=== PATIENT | male | born 1950 | race Caucasian/White ===

== ENCOUNTER 2022-12-30 14:46 | Observation (INO) ==
--- NOTE | 2022-12-30 15:10 | XRay Report ---
XR chest 1V portable HISTORY: seizure-like activity COMPARISON: Chest 11/26/2022. FINDINGS: No pneumothorax. No pleural effusions. There is a punctate calcified granuloma within the r ight midlung zone. No new focal lung consolidations to suggest a pneumonia. No evidence for pulmonary edema. Mild interstitial thickening which is likely chronic. IMPRESSION: No acute process. ACT 112: Negative or not required by law. Electronically signed by: Tomas Bear M.D. 12/30/2022 3:08 PM
[2022-12-30 15:19] LABS: Basophils # (auto) 0.04 K/uL (0.00-0.20); Basophils % (auto) 0.7 %; Eosinophils # (auto) 0.13 K/uL (0.00-0.50); Eosinophils % (auto) 2.3 %; Hematocrit (blood only) 38.4 % (42.0-52.0); Hemoglobin 13.2 g/dl (14.0-18.0); Immature Granulocytes # (auto) 0.02 K/uL (0.01-0.20); Immature Granulocytes % (auto) 0.4 %; Lymphocytes # (auto) 0.94 K/uL (1.20-3.40); Lymphocytes % (auto) 16.6 %; Mean Corpuscular Hemoglobin 33.2 pg (25.0-34.0); Mean Corpuscular Hgb Conc 34.4 g/dL (32.0-36.0); Mean Corpuscular Volume 96.7 fL (80.0-100.0); Mean Platelet Volume 10.8 fL (9.4-12.4); Monocytes # (auto) 0.58 K/uL (0.11-0.59); Monocytes % (auto) 10.3 %; Neutrophils # (auto) 3.94 K/uL (1.40-6.50); Neutrophils % (auto) 69.7 %; Platelet Count 183 K/uL (130-400); RDW Coefficient of Variation 12.7 % (11.5-14.5); RDW Standard Deviation 45.4 fL (36.4-46.3); Red Blood Count 3.97 M/uL (4.70-6.10); White Blood Count 5.65 K/ul (4.8-10.8)
--- NOTE | 2022-12-30 15:28 | Emergency Department Note ---
Impression & Plan Seizure-like activity, Acute confusion, Multiple abrasions ED Provider Note HISTORY OF PRESENT ILLNESS: Patient is a 72-year-old male presenting after a seizure. History is obtained via EMS, as patient is very confused. Patient reportedly was standing at the nurses station when his eyes rolled back into his head and he fell to the ground and had tonic-clonic seizure-like activity for 2 to 3 minutes. He reportedly desaturated to 80% on room air at his facility during the seizure episode. He does not have a seizure history. He normally is alert and talkative per facility. Patient is not on any anticoagulation. ROS: as above PHYSICAL EXAM: Constitutional: Patient appears in no acute distress. HENT: Head: Normocephalic. Abrasion with underlying hematoma to the posterior crown of the head. Eyes: EOMI, PERRL Mouth/Throat: Mucous membranes moist. Neck: Trachea midline. Neck supple. Cardiovascular: RRR, No murmurs, rubs or gallops. Intact distal pulses. Pulmonary/Chest: No respiratory distress. Breath sounds clear and equal bilaterally. No wheezes or rales. No chest wall tenderness to palpation. Abdominal: Abdomen soft, no tenderness, rebound or guarding. Musculoskeletal: Patient has a skin tear to the left elbow. Skin: Warm and dry. No rash, erythema, pallor or cyanosis Neurological: Alert but lethargic. CN II-XII grossly intact, moving all extremities spontaneously. MDM: - Vitals signs stable. - History obtained via EMS, given patient's confusion. Patient presents with seizure-like activity. Per reports from the [facility], the patient was standing at the nurses station when his eyes rolled back into his head and he fell off the ground and had seizure-like activity. Seizure lasted 2 to 3 minutes. Reportedly desaturated to 88% on room air at his facility during the episode. He does not have a seizure history. He is not on any anticoagulation. - Chronic conditions affecting care: dementia - Differential diagnoses include, but are not limited to: CVA; intracranial hemorrhage; ACS; pneumothorax; pneumonia; UTI - Order placed for continuous cardiac monitoring. At this time, monitor showed rate of 70 bpm with normal sinus rhythm, per my interpretation. - External medical records reviewed. EMS run sheet reviewed. Patient vitally stable in route. No medications were given prehospital. - EKG reviewed by myself showed normal sinus rhythm. Rate 71 bpm. QTc 395. No acute changes. - Laboratory workup interpreted by myself showed normal WBC; chronic anemia; stable electrolyte; normal glucose; normal magnesium; normal troponin; elevated CK (387) - CT head wo contrast negative for acute intracranial pathology. CT cervical spine wo contrast negative for fracture. - CXR negative for pneumonia, per my interpretation - Patient was reassessed multiple times in the ER and remained lethargic. He would arouse to verbal and physical stimuli, but would not interact or answer questions - UA ordered - Given percent for seizure and continued altered mental status, will admit to the hospital for further work-up. - Discussion was had with socially responsible investment adviser about patient's case and need for admission - Hospitalist consulted for admission - [facility] for further evaluation and management. ASSESSMENT AND PLAN: Diagnosis: Confusion; seizure-like activity; multiple abrasions Plan: Admit Past Med/Surg History Social History Smoking Status: Never smoker Feels Safe at Home: Yes Allergies Allergies Allergy/AdvReac Type Severity Reaction Status Date / Time cephalexin [From Keflex] Allergy Unknown Verified 11/26/22 22:35 Home Meds Home Medications Medication Instructions Recorded Confirmed acetaminophen 325 mg tablet 650 mg PO Q6 PRN Pain 11/26/22 12/30/22 acetaminophen 325 mg tablet 650 mg PO Q6 PRN temp>101 11/26/22 12/30/22 cholecalciferol (vitamin D3) 25 25 mcg PO DAILY 11/26/22 12/30/22 mcg (1,000 unit) tablet (Vitamin D3) divalproex 125 mg capsule,delayed 250 mg PO TID 11/26/22 12/30/22 release sprinkle (Depakote Sprinkles) fluticasone propionate 50 2 spray intranasal DAILY 11/26/22 12/30/22 mcg/actuation nasal spray,suspension lorazepam 0.5 mg tablet 0.25 mg PO QAM 11/26/22 12/30/22 trazodone 50 mg tablet 50 mg PO HS 11/26/22 12/30/22 lorazepam 0.5 mg tablet 0.5 mg PO HS 12/30/22 12/30/22 quetiapine 50 mg tablet 100 mg PO HS 12/30/22 12/30/22 salicylic acid-sulfur 2 %-2 % 1 applic topical .EVERY DAY SHIFT 12/30/22 12/30/22 shampoo Results & Data (ED) Vital Signs Vital Signs - 24 hr 12/30/22 14:49 12/30/22 15:07 12/30/22 15:11 Temperature 36.8 C Temperature Source Oral Pulse Rate 74 72 72 Pulse Rate [Right Finger] Pulse Rhythm Regular Regular Pulse Rhythm [Right Finger] Pulse Strength Normal Pulse Strength [Right Finger] Respiratory Rate 18 18 Respiratory Effort / Characteristics Non-Labored Spontaneous Respiratory Depth Normal Respiratory Pattern Regular Blood Pressure 131/82 Blood Pressure [Right Arm] Blood Pressure Mean 98 Blood Pressure Mean [Right Arm] Blood Pressure Position Lying Pulse Oximetry 97 97 Oxygen Delivery Method Room Air Room Air Sepsis Recent Fever Within 48 Hours No Sepsis New/Unexplained Change in Mental Status No Sepsis Action Taken by Nursing No Action Required 12/30/22 16:32 Temperature Temperature Source Pulse Rate Pulse Rate [Right Finger] 70 Pulse Rhythm Pulse Rhythm [Right Finger] Regular Pulse Strength Pulse Strength [Right Finger] Normal Respiratory Rate 18 Respiratory Effort / Characteristics Non-Labored Spontaneous Respiratory Depth Normal Respiratory Pattern Regular Blood Pressure Blood Pressure [Right Arm] 142/91 H Blood Pressure Mean Blood Pressure Mean [Right Arm] 108 Blood Pressure Position Pulse Oximetry 99 Oxygen Delivery Method Room Air Sepsis Recent Fever Within 48 Hours Sepsis New/Unexplained Change in Mental Status Sepsis Action Taken by Nursing Laboratory Data 12/30/22 14:56 12/30/22 14:56 Lab Results 12/30/22 12/30/22 12/30/22 Range/Units 14:56 14:56 14:56 WBC 5.65 (4.8-10.8) K/ul RBC 3.97 L (4.70-6.10) M/uL Hgb 13.2 L (14.0-18.0) g/dl Hct 38.4 L (42.0-52.0) % MCV 96.7 (80.0-100.0) fL MCH 33.2 (25.0-34.0) pg MCHC 34.4 (32.0-36.0) g/dL RDW Std Deviation 45.4 (36.4-46.3) fL RDW Coeff of Rose 12.7 (11.5-14.5) % Plt Count 183 (130-400) K/uL MPV 10.8 (9.4-12.4) fL Immature Gran % (Auto) 0.4 % Neut % (Auto) 69.7 % Lymph % (Auto) 16.6 % [place] % (Auto) 10.3 % Eos % (Auto) 2.3 % Baso % (Auto) 0.7 % Neut # (Auto) 3.94 (1.40-6.50) K/uL Lymph # (Auto) 0.94 L (1.20-3.40) K/uL [place] # (Auto) 0.58 (0.11-0.59) K/uL Eos # (Auto) 0.13 (0.00-0.50) K/uL Baso # (Auto) 0.04 (0.00-0.20) K/uL Immature Gran # (Auto) 0.02 (0.01-0.20) K/uL PT 10.7 (9.0-12.0) Seconds INR 1.0 (0.9-1.1) Sodium 141 (136-145) mmol/L Potassium 4.6 (3.5-5.1) mmol/L Chloride 103 (98-107) mmol/L Carbon Dioxide 32 (21-32) mmol/L Anion Gap 6 (3-11) BUN 29 H (6-23) mg/dl Creatinine 1.08 (0.6-1.4) mg/dl Est Cr Clr Drug Dosing 53.1 ml/min Est GFR ( Amer) 79.6 ml/min Est GFR (Non-Af Amer) 68.7 ml/min BUN/Creatinine Ratio 26.9 H (10-20) Glucose 151 H (70-99(Fasting)) mg/dl Lactate (0.4-2.0) mmol/L Calcium 9.1 (8.6-10.3) mg/dl Magnesium 2.1 (1.7-2.4) mg/dl Total Bilirubin 0.4 (0.2-1.0) mg/dl AST 27 (13-39) U/L ALT 18 (7-52) U/L Alkaline Phosphatase 62 (34-104) U/L Total Creatine Kinase 387 H (30-223) U/L Troponin I High Sens 7.1 (0-20) pg/ml Total Protein 6.1 (6.0-8.3) gm/dl Albumin 3.9 (3.4-5.0) gm/dl Globulin 2.2 L (2.5-4.0) gm/dl Albumin/Globulin Ratio 1.8 (0.9-2) 12/30/22 Range/Units 16:07 WBC (4.8-10.8) K/ul RBC (4.70-6.10) M/uL Hgb (14.0-18.0) g/dl Hct (42.0-52.0) % MCV (80.0-100.0) fL MCH (25.0-34.0) pg MCHC (32.0-36.0) g/dL RDW Std Deviation (36.4-46.3) fL RDW Coeff of Rose (11.5-14.5) % Plt Count (130-400) K/uL MPV (9.4-12.4) fL Immature Gran % (Auto) % Neut % (Auto) % Lymph % (Auto) % [place] % (Auto) % Eos % (Auto) % Baso % (Auto) % Neut # (Auto) (1.40-6.50) K/uL Lymph # (Auto) (1.20-3.40) K/uL [place] # (Auto) (0.11-0.59) K/uL Eos # (Auto) (0.00-0.50) K/uL Baso # (Auto) (0.00-0.20) K/uL Immature Gran # (Auto) (0.01-0.20) K/uL PT (9.0-12.0) Seconds INR (0.9-1.1) Sodium (136-145) mmol/L Potassium (3.5-5.1) mmol/L Chloride (98-107) mmol/L Carbon Dioxide (21-32) mmol/L Anion Gap (3-11) BUN (6-23) mg/dl Creatinine (0.6-1.4) mg/dl Est Cr Clr Drug Dosing ml/min Est GFR ( Amer) ml/min Est GFR (Non-Af Amer) ml/min BUN/Creatinine Ratio (10-20) Glucose (70-99(Fasting)) mg/dl Lactate 1.3 (0.4-2.0) mmol/L Calcium (8.6-10.3) mg/dl Magnesium (1.7-2.4) mg/dl Total Bilirubin (0.2-1.0) mg/dl AST (13-39) U/L ALT (7-52) U/L Alkaline Phosphatase (34-104) U/L Total Creatine Kinase (30-223) U/L Troponin I High Sens (0-20) pg/ml Total Protein (6.0-8.3) gm/dl Albumin (3.4-5.0) gm/dl Globulin (2.5-4.0) gm/dl Albumin/Globulin Ratio (0.9-2) Imaging Data Radiologist's Impression: Cervical Spine CT 12/30/22 14:[address] DOSE: 1094.91 mGy.cm HISTORY: seizure-like activity; fell hit head TECHNIQUE: Multiaxial CT images of the cervical spine were performed and reformatted in the sagittal and coronal plane without the use of contrast. A dose lowering technique was utilized adhering to the principles of ALARA. COMPARISON: Cervical spine CT 11/26/2022. FINDINGS: No fractures. No subluxation. Prevertebral soft tissues and the C1-C2 interval are intact. No pneumothorax. Moderate to severe degenerative changes within the cervical spine. IMPRESSION: No fractures within the cervical spine. ACT 112: Negative or not required by law. Electronically signed by: Tomas Bear M.D. 12/30/2022 5:01 PM Chest X-Ray 12/30/22 14:58 XR chest 1V portable HISTORY: seizure-like activity COMPARISON: Chest 11/26/2022. FINDINGS: No pneumothorax. No pleural effusions. There is a punctate calcified granuloma within the right midlung zone. No new focal lung consolidations to suggest a pneumonia. No evidence for pulmonary edema. Mild interstitial thickening which is likely chronic. IMPRESSION: No acute process. ACT 112: Negative or not required by law. Electronically signed by: Tomas Bear M.D. 12/30/2022 3:[address] 12/30/22 14:[address] DOSE: HISTORY: seizure-like activity; fell hit head TECHNIQUE: Multiaxial CT images of the head were performed without the use of intravenous contrast. Automated exposure control was utilized for this study. A dose lowering technique was utilized adhering to the principles of ALARA. Comparison: None. Findings: Partial opacification of the right maxillary sinus with an associated fluid level. There is also partial opacification of the frontal sinuses and ethmoid air cells with mild mucosal thickening of the left maxillary sinus. This is similar to the prior study. The mastoid air cells are clear. There is a slightly displaced fracture at the nasal process of the right maxilla best seen on image 2. This is age indeterminate. No overlying soft tissue swelling. Mild motion artifact. There is no mass, hematoma, midline shift, acute infarct. Stable ventriculomegaly. Atrophy and microvascular ischemic changes are again noted. Impression: 1. No acute infarct or intracranial hemorrhage. 2. Slightly displaced fracture at the nasal process of the right maxilla. This is age indeterminate. No overlying soft tissue swelling. 3. Atrophy, microvascular ischemic changes, and mild ventriculomegaly again noted. ACT 112: Negative or not required by law. Electronically signed by: Tomas Bear M.D. 12/30/2022 4:39 PM Discharge Plan Visit Data Chief Complaint: Seizure ED Provider: Daisy Faulkner Discharge Problem: Seizure-like activity, Acute confusion, Multiple abrasions Forms Stand Alone Forms: My [facility] Prescriptions Prescriptions: No Action lorazepam 0.5 mg Tablet 0.25 mg PO QAM Rx Instructions: 1/2 tablet dose trazodone 50 mg Tablet 50 mg PO HS fluticasone propionate [Flonase] 50 mcg/actuation [place],Suspension 2 spray INTRANASAL DAILY Rx Instructions: administer into each nostril divalproex [Depakote Sprinkles] 125 mg Capsule, Delayed Rel Sprinkle 250 mg PO TID cholecalciferol (vitamin D3) [Vitamin D3] 25 mcg (1,000 unit) Tablet 25 mcg PO DAILY acetaminophen 325 mg Tablet 650 mg PO Q6 MDD 3g PRN (Reason: temp>101) acetaminophen 325 mg Tablet 650 mg PO Q6 MDD 3g PRN (Reason: Pain) lorazepam 0.5 mg tablet 0.5 mg PO HS quetiapine 50 mg Tablet 100 mg PO HS Sebulex 2-2 % Shampoo 1 applic TOPICAL .EVERY DAY SHIFT Rx Instructions: massage into wet scalp; leave on for 5 mins ; rinse; repeat application apply to top of head Referrals Referrals: Harish Anderson [Primary Care Provider] -
[2022-12-30 15:44] LABS: Albumin Globulin Ratio 1.8 (0.9-2); Albumin Level 3.9 gm/dl (3.4-5.0); BUN Creatinine Ratio 26.9 (10-20); Bilirubin,Total 0.4 mg/dl (0.2-1.0); Calcium 9.1 mg/dl (8.6-10.3); Creatinine Clr Calc Pharmacy 53.1 ml/min; Est GFR (African American) 79.6 ml/min; Est GFR (Non-African American) 68.7 ml/min; Globulin 2.2 gm/dl (2.5-4.0); Magnesium 2.1 mg/dl (1.7-2.4); Potassium 4.6 mmol/L (3.5-5.1); Total Protein 6.1 gm/dl (6.0-8.3)
[2022-12-30 15:49] LABS: Troponin I High Sensitivity 7.1 pg/ml (0-20)
[2022-12-30 15:56] LABS: Prothrombin Time 10.7 Seconds (9.0-12.0)
--- NOTE | 2022-12-30 16:41 | CT Scan Report ---
HEAD CT NONCONTRAST CT DOSE: HISTORY: seizure-like activity; fell hit head TECHNIQUE: Multiaxial CT images of the head were performed without the use of intravenous contrast. A utomated exposure control was utilized for this study. A dose lowering technique was utilized adheri ng to the principles of ALARA. Comparison: None. Findings: Partial opacification of the right maxillary sinus with an associated fluid level. There is also partial opacification of the frontal sinuses and ethmoid air cells with mild mucosal thickening of the left maxillary sinus. This is similar to the prior study. The mastoid air cells are clear. Th ere is a slightly displaced fracture at the nasal process of the right maxilla best seen on image 2. This is age indeterminate. No overlying soft tissue swelling. Mild motion artifact. There is no mass, hematoma, midline shift, acute infarct. Stable ventriculomegaly. Atrophy and microvascular ischemic changes are again noted. Impression: 1. No acute infarct or intracranial hemorrhage. 2. Slightly displaced fracture at the nasal process of the right maxilla. This is age indeterminate. No overlying soft tissue swelling. 3. Atrophy, microvascular ischemic changes, and mild ventriculomegaly again noted. ACT 112: Negative or not required by law. Electronically signed by: Tomas Bear M.D. 12/30/2022 4:39 PM
--- NOTE | 2022-12-30 17:04 | CT Scan Report ---
CERVICAL SPINE CT CT DOSE: 1094.91 mGy.cm HISTORY: seizure-like activity; fell hit head TECHNIQUE: Multiaxial CT images of the cervical spine were performed and reformatted in the sagittal and coronal plane without the use of contrast. A dose lowering technique was utilized adhering to th e principles of ALARA. COMPARISON: Cervical spine CT 11/26/2022. FINDINGS: No fractures. No subluxation. Prevertebral soft tissues and the C1-C2 interval are intact. No pneumothorax. Moderate to severe degenerative changes within the cervical spine. IMPRESSION: No fractures within the cervical spine. ACT 112: Negative or not required by law. Electronically signed by: Tomas Bear M.D. 12/30/2022 5:01 PM
[2022-12-30 18:30] LABS: Appearance Urine Clear (Clear); Bacteria Urine Automated Negative (Negative); Bilirubin Urine Negative (Negative); Blood Urine Negative (Negative); Color Urine Yellow; Epithelial Cell Urine Auto >30 /lpf (0-5); Glucose Urine UA Negative (Negative); Ketones Urine 1+ (Negative); Leukocyte Esterase Urine Negative (Negative); Nitrite Urine Negative (Negative); RBC Urine Automated 0-4 /hpf (0-4); Specific Gravity Urine 1.028 (1.000-1.030); Urobilinogen Urine Positive (Negative); pH Urine 7.5 (4.5-7.5)
[2022-12-30 18:38] LABS: Protein Urine Trace (Negative)
[2022-12-30 18:47] LABS: Renal Epithelial Cells Urine 0-5 /lpf (0-5)
--- NOTE | 2022-12-30 18:58 | History & Physical Report ---
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 Lethargy at ER -contusion to back of head -No episodes on ER -CT-H/CTA-N negative. -Admitted on Seizure precautions -MRI ordered -Ativan prn for seizures -Keppra prn for seizures -Aspiration precautions -Neurology consulted Alzheimer's dementia with behavioral disturbances -Late onset -Will hold Quetiapine for now -Will continue Trazodone and Ativan Multiple abrasions -3 cm laceration inleft posterior crown of head repaired -Skin tear on left elbow -CT head negative for acute hemorrhage -Fall precautions Code: Full code Dispo: PCU Fen/GI: Regular, Minced and Moist DVT prophylaxis: SCD PT/OT: yes Case management: yes History of Present Illness Primary Care Provider: Harish nAderson Seymour is a 72-year-old male presenting at the ER after a seizure.Patient with PMHx late onset alzheimer's dementia with behavioral disturbance and Anxiety.Per correction staff, patient was standing at the nurses station when his eye rolled back into his head and he fell to the ground. Patient has a tonic-clonic seizure like activity for 2 to 3 minutes. He reportedly desaturated to 80 % on room it at his facility. Patient with no seizure history. Patient was here a couple of nights ago due to a fall and head lacerations, all work up at the moment were negative for an acute process. He normally is alert and talkative per facility. Patient is not on any anticoagulation. As per last [facility] visit note, patient has a history of multiple recent falls. Due to this, patient was started to wean off Ativan from 0.5 mg to 0.25 mg. Additionally, his trazodone was increased to 100 mg at 6 PM. Patient previously started on Velafaxine, but no record of the medication on the correction paperwork. Multiple lower-threshold medications change on patient home medications At evaluation patient was found alone, was talkative and alert o lethargy, but disoriented x3. History limited due to dementia. No other episodes in the ER. Head CT with no evidenced of intracranial hemorrhage. Chest x ray negative for an infectious process. UA negative for UTI. Glucose at 151. Will admitted patient for further work up on seizure protocol. Allergies Allergy/AdvReac Type Severity Reaction Status Date / Time cephalexin [From Keflex] Allergy Unknown Verified 11/26/22 22:35 Home Medications Medication Instructions Recorded Confirmed Type acetaminophen 325 mg tablet 650 mg PO Q6 PRN Pain 11/26/22 12/30/22 History acetaminophen 325 mg tablet 650 mg PO Q6 PRN temp>101 11/26/22 12/30/22 History cholecalciferol (vitamin D3) 25 25 mcg PO DAILY 11/26/22 12/30/22 History mcg (1,000 unit) tablet (Vitamin D3) divalproex 125 mg capsule,delayed 250 mg PO TID 11/26/22 12/30/22 History release sprinkle (Depakote Sprinkles) fluticasone propionate 50 2 spray intranasal DAILY 11/26/22 12/30/22 History mcg/actuation nasal spray,suspension lorazepam 0.5 mg tablet 0.25 mg PO QAM 11/26/22 12/30/22 History trazodone 50 mg tablet 50 mg PO HS 11/26/22 12/30/22 History lorazepam 0.5 mg tablet 0.5 mg PO HS 12/30/22 12/30/22 History quetiapine 50 mg tablet 100 mg PO HS 12/30/22 12/30/22 History salicylic acid-sulfur 2 %-2 % 1 applic topical .EVERY DAY SHIFT 12/30/22 12/30/22 History shampoo Past Med/Surg History Social History Smoking Status: Never smoker Feels Safe at Home: Yes Review of Systems 2 Review of Systems: as per HPI Physical Exam Constitutional: WD/WN, vitals as above Alert in no acute distress Head: 3 cm laceration with underlaying hematoma to the posterior crown of the head Eyes: PERRL, conjunctivae normal, anicteric sclerae ENMT: external ear and nose normal, oropharynx normal Neck: trachea midline, no thyromegaly Respiratory: normal respiratory effort, lungs clear to auscultation Cardiovascular: RRR, no murmur, no edema Gastrointestinal (Abdomen): normal bowel sounds, soft, nontender, no hepatosplenomegaly Musculoskeletal: Patient with a skin tear to the left elbow Neurologic: CN's II-XI intact bilaterally, deep tendon reflexes 2+ bilaterally and moves all extremities Psychiatric: Orientation: alert; + not oriented x 3 Results & Data Results & Data Vital Signs (Past 12 Hours) Vital Signs Temp Pulse Pulse Resp BP BP Pulse Ox 12/30/22 18:19 82 18 141/84 H 94 12/30/22 16:32 70 18 142/91 H 99 12/30/22 15:11 72 12/30/22 15:07 72 18 97 12/30/22 14:49 36.8 C 74 18 131/82 97 O2 Del Method 12/30/22 18:19 Room Air 12/30/22 16:32 Room Air 12/30/22 15:11 12/30/22 15:07 Room Air 12/30/22 14:49 Room Air Supervising Physician Co-Signing Physician Notes Patient seen and examined, chart reviewed, case discussed with Dr. Jose Francisco lazcano and I agree with the assessment and plan as above except as otherwise noted Labs and images reviewed Seizure-like activity at correction Hypoxic during No seizure history on dementia unit Very lethargic, arouses to noxious stimula otherwise very somnolent CT-H/CTA-N negative.Continusion to back of head CK up, lactate normal Pending straight cath. At bedside patient is moving all extremities equally. Withdraws to soft touch from all 4 extremities. Heart rate is regular, no murmur. Pupils equal and reactive at bedside assessment. Patient with severe in stage dementia, unclear baseline dating inability to contact either primary turn of contact or facility but for available note review with end-stage dementia and severe behavioral disturbance and 1 fall prior to this. Per [facility] records patient had had a slight wean to home longstanding lorazepam from 0.5 twice daily, currently appears at 0.25 mg a.m. point 5 PM. This wean was started in November. [place] [facility] [place] his trazodone was to be increased to 100 mg at 6 PM, Seroquel was switched to 6 PM dosing, and Depakote was continued to 3 times daily. Up titration of these was recommended for behavioral control with severe behavioral disturbance with end-stage dementia. Seroquel was recently increased from 25 to 50 mg 12/01. Patient has been taking Effexor previously, per memory and cognition program follow-up patient was started on venlafaxine 37.5 mg and up titrated to 75 mg if tolerated at last visit; this does not appear on his [facility] med list and was likely stopped due to lack of therapeutic benefit. Was unable to confirm this with [facility] as no answer x2 at that facility, patient has no contact information listed either on their transfer paperwork or in our system. DDx for seizure does include ischemic stroke, TBI with recent falls and head strike (no evidence of intracranial hemorrhage/bleed is noted on CT), and medication induced both from lowered seizure threshold, Seroquel and concurrent benzodiazepine wean although this has been a relatively low-dose wean. Agree with MRI seizure protocol. Ativan on-call for seizure. Seizure precautions. Additional work-up pending above. History is limited by dementia. If patient displays additional seizure episodes, Ativan 2 mg every 5 minutes up to 3 doses and load with Keppra 1 g at that time. Resident Activity Tracking Resident Involvement: Resident Care Provided Care Provided: Adult [facility]
[2022-12-30] MEDS ORDERED: OLANZapine ZYDIS 5 MG ORALLY DIS. TAB PO ONE (20:41)
[2022-12-30] MEDS ORDERED: OLANZapine ZYDIS 5 MG ORALLY DIS. TAB PO PRN (21:56)
[2022-12-30] MEDS ORDERED: ACETAMINOPHEN 325 MG TAB PO PRN (21:56)
[2022-12-30] MEDS ORDERED: LORazepam 2 MG/1 ML VIAL IV PRN (21:56)
[2022-12-30] MEDS: LORazepam 0.5 MG TAB PO SCH (22:29)
[2022-12-30] MEDS: DIVALPROEX SODIUM SPRINKLE/DEL-REL 125 MG CAP PO SCH (22:45)
[2022-12-30] MEDS: traZODone HCL 50 MG TAB PO SCH (22:45)
--- NOTE | 2022-12-31 07:51 | Hospitalist Progress Note ---
Date of Service December 31, 2022 Assessment & Plan (1) Seizure-like activity: Plan: 72-year-old male with PMHx End stage alzheimer's dementia with behavioral disturbance and Anxiety admitted due to a seizure-like activity Seizure- like activity -Episode of a tonic-clonic seizure like activity for 2 to 3 minutes. Lethargy at ER. No episodes on ER -contusion to back of head -CT-H/CTA-N negative. -Admitted on Seizure precautions -MRI brain: No acute intracranial abnormality identified. Involutional changes with unchanged ventriculomegaly which may be on an ex vacuo basis. Normal pressure hydrocephalus could appear similarly. Mild to moderate mucosal thickening of the paranasal sinuses. -Ativan prn for seizures -Keppra prn for seizures -Aspiration precautions -Neurology consulted, recommend increase Depakote to 500mg PO TID recheck valproic acid trough in 3-5 days, consider EEG, Alzheimer's dementia with behavioral disturbances -lives at [facility], likely alf memory care -Will hold Quetiapine for now, if develops agitation overnight may resume quetiapine 100mg PO HS -Will continue Trazodone and Ativan Multiple Falls -3 cm laceration inleft posterior crown of head repaired -Skin tear on left elbow -CT head negative for acute hemorrhage -Fall precautions Code Status -given patient's cognitive decline, would like to meet with family to discuss goals of care -attempted to contact family, however no response Leanne: [phone] Daughter Daisy: [phone] Code: Full code Dispo: PCU Fen/GI: Regular, Minced and Moist DVT prophylaxis: SCD Case management: yes (2) Multiple abrasions: (3) Alzheimer disease: (4) Anxiety: Admission and Anticipated Discharge Date Admission Date: December 30, 2022 Supervising Physician Co-Signing Physician Notes I personally examined the patient and verified rutherford points of history and exam, discussed case, and agree with decision making and plan documented by Dr. Mina. Patient with a history of advanced Alzheimer's dementia, unable to obtain history, here for concern for possible seizure activity. Neurology evaluated patient today and recommended increasing Depakote to 500mg 3 times daily and consideration of EEG. Primary team attempted to reach family to discuss ba seline and goals of care. Subjective Patient seen at bedside breathing comfortably. Not responsive to voice or physical stimulation. At one point he opened his eyes, did not orient to voice, did not respond to hand waved in front of face. He made one vocalized response to questions. He was able to follow command to squeeze a finger. Per [facility] notes, Leanne is POA. He is full code per [facility] records. Attempted to reach family by phone, no response. Contacted [facility], patient's current behavior is his baseline, though he is also noted to walk and run. Leanne: [phone] Daughter Daisy: [phone] Review of Systems Review of Systems: Unobtainable due to cognitive status Physical Exam Constitutional: + thin and comfortable ENMT: external ear and nose normal, oropharynx normal Neck: trachea midline, no thyromegaly Respiratory: normal respiratory effort Auscultation: lungs clear to auscultation bilaterally Cardiovascular: Rate/Rhythm: regular rate and regular rhythm Extremities: no edema Gastrointestinal (Abdomen): Inspection/Auscultation: abdomen normal to inspection Percussion/Palpation: abdomen soft; abdomen nontender Skin: abrasion noted on scalp, minimal drainage Results & Data Results & Data Vital Signs (Past 12 Hours) Vital Signs Temp Pulse Pulse Resp BP Pulse Ox Pulse Ox 12/31/22 06:40 59 L 18 139/79 95 12/31/22 00:00 12/30/22 23:00 53 L 12/30/22 22:17 59 L 18 139/79 95 12/30/22 22:16 94 12/30/22 21:02 36.8 C 61 18 144/87 H 96 O2 Del Method O2 Del Method 12/31/22 06:40 Room Air 12/31/22 00:00 Room Air 12/30/22 23:00 12/30/22 22:17 Room Air 12/30/22 22:16 Room Air 12/30/22 21:02 Room Air Resident Activity Tracking Resident Involvement: Resident Care Provided Care Provided: Adult Hospital Medicine
[2022-12-31] MEDS: DIVALPROEX SODIUM SPRINKLE/DEL-REL 125 MG CAP PO SCH ×3 (08:37→20:24)
[2022-12-31] MEDS: LORazepam 0.5 MG TAB PO SCH ×2 (08:39→20:24)
--- NOTE | 2022-12-31 10:54 | Neurology Consultation ---
Date of Consultation December 31, 2022 Assessment & Plan (1) Alzheimer disease: (2) Seizure-like activity: Plan 72-year-old male with advanced Alzheimer's dementia, associated behavioral disturbance, presenting with new onset witnessed generalized tonic-clonic seizure. He is currently confused which I suspect is at his baseline although he may have a superimposed quiet delirium or postictal confusion as well. Although I believe he is prescribed Depakote as a mood stabilizer, given his recent seizure, I would recommend increasing the dosage of this medication to 500 mg 3 times daily. Would check a follow-up valproic acid trough level in 3 to 5 days. I agree with brain MRI, seizure protocol, as ordered, follow-up with results. Would also recommend checking a routine EEG, could be completed either in the context of this hospitalization or as an outpatient. I would not recommend any cognitive enhancers such as donepezil or memantine in the context of his current hospitalization, and advanced age of his Alzheimer's dementia. If patient's brain MRI reveals evidence of acute or subacute infarct or other MANAGER TITLE process, would make further recommendations as necessary. History of Present Illness Reason for Consultation: New onset seizure, history of advanced dementia Requesting Physician: Karen Attending Physician: Shanti Payne, History of Present Illness The patient is a 72-year-old male retirement resident with a history of advanced Alzheimer's dementia and associated behavioral disturbance, with anxiety, who presented to the emergency department yesterday after a witnessed tonic-clonic seizure lasting 2 to 3 minutes. He has had multiple recent falls and had been seen in the emergency department on November 27 after a fall. A CT of the head and neck at that time were negative for hemorrhage or acute intracranial process. There is generalized atrophy. No subluxation or acute fracture on CT of the cervical spine although there is multilevel spondylosis. Follow-up CT of the head and cervical spine completed December were again negative for acute intracranial or spinal process although there was a nondisplaced fracture of the nasal process of the right maxilla. I did independently review these images. An electrocardiogram reveals a normal sinus rhythm. The patient is an unreliable historian in the context of his advanced Alzheimer's dementia. Allergies Allergy/AdvReac Type Severity Reaction Status Date / Time cephalexin [From Keflex] Allergy Unknown Verified 11/26/22 22:35 Home Medications Medication Instructions Recorded Confirmed Type acetaminophen 325 mg tablet 650 mg PO Q6 PRN Pain 11/26/22 12/30/22 History acetaminophen 325 mg tablet 650 mg PO Q6 PRN temp>101 11/26/22 12/30/22 History cholecalciferol (vitamin D3) 25 25 mcg PO DAILY 11/26/22 12/30/22 History mcg (1,000 unit) tablet (Vitamin D3) divalproex 125 mg capsule,delayed 250 mg PO TID 11/26/22 12/30/22 History release sprinkle (Depakote Sprinkles) fluticasone propionate 50 2 spray intranasal DAILY 11/26/22 12/30/22 History mcg/actuation nasal spray,suspension lorazepam 0.5 mg tablet 0.25 mg PO QAM 11/26/22 12/30/22 History trazodone 50 mg tablet 50 mg PO HS 11/26/22 12/30/22 History lorazepam 0.5 mg tablet 0.5 mg PO HS 12/30/22 12/30/22 History quetiapine 50 mg tablet 100 mg PO HS 12/30/22 12/30/22 History salicylic acid-sulfur 2 %-2 % 1 applic topical .EVERY DAY SHIFT 12/30/22 12/30/22 History shampoo Patient History Social History Smoking Status: Unknown if ever smoked Preferred Language: Croatian Communication Ability: Impaired Rolling Chair Pusher Required: No Current Living Situation: Group Home Current Living Situation Comment: [facility] Feels Safe at Home: Yes Review of Systems Review of Systems: Unobtainable due to cognitive status Exam (Neuro) Constitutional: + behavioral limitations and + frail appearing Eyes: normal visual [place] by confrontation, PERRL and EOM intact bilaterally Cardiovascular: Vessels: no carotid bruit Neurologic: Oriented to:: negative Person, Place or Time Memory: negative Short Term Intact or Remote Intact Attention: negative Span Intact or Concentration Intact Speech Fluency: Limited Comprehension and Verbal Skills Limited Fund of Knowledge: negative Current Events, Past History or Vocabulary Cranial Nerves: Normal II, III, IV, , V, VII, VIII, IX, X, XI and XII Motor Strength: Normal Lower Extremities and Normal Upper Extremities; negative Hemiplegia or Hemiparesis Rigidity: Rigidity Muscle Bulk/Involuntary Movements: No Involuntary Movements Sensation: Light Touch Intact and Pain/Temperature Intact Coordination: negative Finger-Nose Abnormal Deep Tendon Reflexes: Rt Triceps: 2+, Lt Triceps: 2+, Rt Biceps: 2+, Lt Biceps: 2+, Rt Brachioradialis: 2+, Lt Brachioradialis: 2+, Rt Patellar: 2+, Lt Patellar: 2+, Rt Ankle: 1+ and Lt Ankle: 1+ Special Tests: negative Babinski Present Details: Limited examination due to poor patient cooperation. Gait could not be tested. Results & Data Vital Signs (Past 12 Hours) Vital Signs Pulse Pulse Resp BP Pulse Ox O2 Del Method 12/31/22 08:48 146/65 H 12/31/22 06:40 59 L 18 139/79 95 Room Air 12/31/22 00:00 Room Air 12/30/22 23:00 53 L Laboratory Results WBC 5.65, hemoglobin 13.2, hematocrit 38.4, MCV 96.7, platelet count 183, sodium 141, potassium 4.6, BUN 29, creatinine 1.08, glucose 151, magnesium 2.1, AST 27, ALT 18, total CK3 87, prolactin 3.68, urinalysis negative, SARS-CoV-2 negative. A valproic acid level from November 20 was 18 (patient on this medication for mood/behavior). Diagnostic Findings CT of the head and cervical spine are as described in the HPI. I did independently review these images. An electrocardiogram reveals a normal sinus rhythm, 71 bpm. Coding Level of Care Code 44346 INT INP/OBS CARE 2/55MIN Diagnoses Alzheimer disease G30.9; F02.80 Seizure-like activity R56.9
--- NOTE | 2022-12-31 11:03 | XRay Report ---
XR KUB/Abdomen 1 view CLINICAL HISTORY: to clear for MRI TECHNIQUE: 1 view of the abdomen was obtained. Comparison: None available at the time of this dictation. FINDINGS: Right hip total arthroplasty is seen. Degenerative changes are seen in the visualized skeleton. The b owel gas pattern is nonobstructive. A moderate amount of stool is noted within the large bowel. IMPRESSION: Right hip total arthroplasty. Otherwise no metallic bodies are seen. Patient is cleared for MRI. ACT 112: Negative or not required by law. Electronically signed by: Ernesto Taylor M.D. 12/31/2022 11:02 AM
--- NOTE | 2022-12-31 13:19 | Magnetic Resonance Report ---
MR brain seizure wo con HISTORY: 72 years-old Male seizure acute head injury status post fall with acute seizure like activi ty COMPARISON: Head CT 12/30/2022, 11/25/2022. TECHNIQUE: Multiplanar multisequence MRI the brain was obtained without the use of IV contrast. FINDINGS: No restricted diffusion. Midline structures are unremarkable. Degenerative changes of the cervical sp ine. Midline structures are unremarkable. No acute intracranial hemorrhage, midline shift, abnormal e xtra-axial collection, or intracranial mass identified. Unchanged ventriculomegaly. No pathologic blo oming artifact on the T2*series. No evidence of [place] matter heterotopia, acute seizure focus or mesia l temporal sclerosis. The right hippocampus is suboptimally evaluated secondary to motion artifact. M ild white matter T2/FLAIR hyperintense foci. The cerebral venous sinuses and major arterial flow voids appear patent. Skull, orbits and soft tissu es are unremarkable. Moderate mucosal thickening within the ethmoid sinuses. Right maxillary air-flui d level. Nasal bone fractures are better seen on the comparison CT exam. IMPRESSION: 1. No acute intracranial abnormality identified. 2. Involutional changes with unchanged ventriculomegaly which may be on an ex vacuo basis. Normal pre ssure hydrocephalus could appear similarly. 3. Mild to moderate mucosal thickening of the paranasal sinuses. ACT 112: Negative or not required by law. The above report was generated using voice recognition software. It may contain grammatical, syntax o r spelling errors. Electronically signed by: Robby Flores M.D. 12/31/2022 1:17 PM
--- NOTE | 2022-12-31 18:46 | Electrocardiogram Report ---
Test Reason : Blood Pressure : / mmHG Vent. Rate : 071 BPM Atrial Rate : 071 BPM P-R Int : 152 ms QRS Dur : 070 ms QT Int : 364 ms P-R-T Axes : 055 075 067 degrees QTc Int : 395 ms Normal sinus rhythm When compared with ECG of 26-NOV-2022 21:04, No significant change was found Confirmed by Shaggy Lundberg ([id number]) on 12/31/2022 6:45:43 PM Referred By: [facility] Confirmed By:Jason Lundberg
[2022-12-31] MEDS: traZODone HCL 50 MG TAB PO SCH (20:24)
--- NOTE | 2023-01-01 06:57 | Hospitalist Progress Note ---
Date of Service January 01, 2023 Assessment & Plan (1) Seizure-like activity: Plan: 72-year-old male with PMHx End stage alzheimer's dementia with behavioral disturbance and Anxiety admitted due to a seizure-like activity Seizure- like activity -Episode of a tonic-clonic seizure like activity for 2 to 3 minutes. Lethargy at ER. No episodes on ER -contusion to back of head -CT-H/CTA-N negative. -Admitted on Seizure precautions -MRI brain: No acute intracranial abnormality identified. Involutional changes with unchanged ventriculomegaly which may be on an ex vacuo basis. Normal pressure hydrocephalus could appear similarly. Mild to moderate mucosal thickening of the paranasal sinuses. -Ativan prn for seizures -Keppra prn for seizures -Aspiration precautions -Neurology consulted, recommend increase Depakote to 500mg PO TID recheck valproic acid trough in 3-5 days, consider EEG, Alzheimer's dementia with behavioral disturbances -lives at [facility], likely residential memory care -Will hold Quetiapine for now, if develops agitation overnight may resume quetiapine 100mg PO HS -Will continue Trazodone and Ativan Multiple Falls -3 cm laceration inleft posterior crown of head repaired -Skin tear on left elbow -CT head negative for acute hemorrhage -Fall precautions Code Status -given patient's cognitive decline, would like to meet with family to discuss goals of care -contacted , she has understanding of patient's significant cognitive decline and heroic measures may not be conductive to quality of life. Has not thought in depth of code status, no living will, last discussion with prior to cognitive decline had wanted all measures. Leanne: [phone] Daughter Daisy: [phone] Code: Full code Dispo: PCU Fen/GI: Regular, Minced and Moist DVT prophylaxis: SCD Case management: yes (2) Multiple abrasions: (3) Alzheimer disease: (4) Anxiety: Admission and Anticipated Discharge Date Admission Date: December 30, 2022 Supervising Physician Co-Signing Physician Notes I personally examined the patient and verified rutherford points of history and exam, discussed case, and agree with decision making and plan documented by Dr. Mina. Patient's reports to medical team by phone that patient is at baseline, wants to avoid additional workup, and will consider code status. Head laceration appears c/d/i, will need shantanu removed in 7-10 days from placement. Subjective Patient seen at bedside sleeping, did not awake or respond to voice or physical stimulation. Per nursing patient finished breakfast with assistance, no acute events overnight. Physical Exam Constitutional: + thin and comfortable ENMT: external ear and nose normal, oropharynx normal Neck: trachea midline, no thyromegaly Respiratory: normal respiratory effort Auscultation: lungs clear to auscultation bilaterally Cardiovascular: Rate/Rhythm: regular rate and regular rhythm Extremities: no edema Gastrointestinal (Abdomen): Inspection/Auscultation: abdomen normal to inspection Percussion/Palpation: abdomen soft; abdomen nontender Skin: abrasion noted on scalp, minimal drainage Results & Data Results & Data Vital Signs (Past 12 Hours) Vital Signs Temp Pulse Resp BP Pulse Ox O2 Del Method 01/01/23 01:49 36.4 C L 55 L 18 144/80 H 95 Room Air 12/31/22 21:50 Room Air 12/31/22 21:45 36.7 C 68 18 137/85 99 Room Air 12/31/22 19:48 Room Air 12/31/22 19:24 36.8 C 68 16 107/71 98 Room Air Resident Activity Tracking Resident Involvement: Resident Care Provided Care Provided: Adult Hospital Medicine
[2023-01-01 07:44] LABS: Hematocrit (blood only) 39.4 % (42.0-52.0); Hemoglobin 13.1 g/dl (14.0-18.0); Mean Corpuscular Hemoglobin 32.3 pg (25.0-34.0); Mean Corpuscular Hgb Conc 33.2 g/dL (32.0-36.0); Mean Corpuscular Volume 97.3 fL (80.0-100.0); Platelet Count 175 K/uL (130-400); RDW Coefficient of Variation 12.3 % (11.5-14.5); RDW Standard Deviation 44.5 fL (36.4-46.3); Red Blood Count 4.05 M/uL (4.70-6.10); White Blood Count 5.33 K/ul (4.8-10.8)
[2023-01-01 07:51] LABS: Calcium 9.2 mg/dl (8.6-10.3); Creatinine Clr Calc Pharmacy 65.6 ml/min; Est GFR (African American) 103.1 ml/min; Magnesium 2.1 mg/dl (1.7-2.4); Potassium 4.7 mmol/L (3.5-5.1)
[2023-01-01] MEDS: DIVALPROEX SODIUM SPRINKLE/DEL-REL 125 MG CAP PO SCH ×3 (09:27→20:47)
[2023-01-01] MEDS: LORazepam 0.5 MG TAB PO SCH ×2 (09:28→21:11)
[2023-01-01] MEDS: traZODone HCL 50 MG TAB PO SCH (21:11)
--- NOTE | 2023-01-02 07:23 | Hospitalist Progress Note ---
Date of Service January 02, 2023 Assessment & Plan (1) Seizure-like activity: Plan: 72-year-old male with PMHx End stage alzheimer's dementia with behavioral disturbance and Anxiety admitted due to a seizure-like activity Seizure- like activity -Episode of a tonic-clonic seizure like activity for 2 to 3 minutes. Lethargy at ER. No episodes on ER -contusion to back of head -CT-H/CTA-N negative. -Admitted on Seizure precautions -MRI brain: No acute intracranial abnormality identified. Involutional changes with unchanged ventriculomegaly which may be on an ex vacuo basis. Normal pressure hydrocephalus could appear similarly. Mild to moderate mucosal thickening of the paranasal sinuses. -Ativan prn for seizures -Keppra prn for seizures -Aspiration precautions -Neurology consulted, recommend increase Depakote to 500mg PO TID recheck valproic acid trough in 3-5 days, consider EEG, Alzheimer's dementia with behavioral disturbances -lives at [facility], likely group home memory care -Will hold Quetiapine for now, if develops agitation overnight may resume quetiapine 100mg PO HS -Will continue Trazodone and Ativan Multiple Falls -3 cm laceration inleft posterior crown of head repaired -Skin tear on left elbow -CT head negative for acute hemorrhage -Fall precautions Code Status -given patient's cognitive decline, would like to meet with family to discuss goals of care -contacted , she has understanding of patient's significant cognitive decline and heroic measures may not be conductive to quality of life. Has not thought in depth of code status, no living will, last discussion with prior to cognitive decline had wanted all measures. Leanne: [phone] Daughter Daisy: [phone] Code: Full code Dispo: PCU Fen/GI: Regular, Minced and Moist DVT prophylaxis: SCD Case management: yes (2) Multiple abrasions: (3) Alzheimer disease: (4) Anxiety: Admission and Anticipated Discharge Date Admission Date: January 01, 2023 Results & Data Results & Data Vital Signs (Past 12 Hours) Vital Signs Temp Pulse Pulse Resp BP Pulse Ox O2 Del Method 01/02/23 07:15 48 L 01/02/23 03:49 36.4 C L 52 L 18 118/36 L 96 Room Air 01/02/23 00:13 63 01/01/23 23:51 36.7 C 63 18 136/71 96 Room Air 01/01/23 19:33 36.3 C L 67 18 152/66 H 95 Room Air
[2023-01-02] MEDS: DIVALPROEX SODIUM SPRINKLE/DEL-REL 125 MG CAP PO SCH ×2 (09:19→14:16)
[2023-01-02] MEDS: LORazepam 0.5 MG TAB PO SCH (09:20)
--- NOTE | 2023-01-02 16:11 | Discharge Summary ---
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 Patient has a tonic-clonic seizure like activity for 2 to 3 minutes. He reportedly desaturated to 80 % on room it at his facility. Patient with no seizure history. Patient was here a couple of nights ago due to a fall and head lacerations, all work up at the moment were negative for an acute process. He normally is alert and talkative per facility. Patient is not on any anticoagulation. As per last [facility] visit note, patient has a history of multiple recent falls. Due to this, patient was started to wean off Ativan from 0.5 mg to 0.25 mg. Additionally, his trazodone was increased to 100 mg at 6 PM. Patient previously started on Velafaxine, but no record of the medication on the correction paperwork. Multiple lower-threshold medications change on patient home medications At evaluation patient was found alone, was talkative and alert o lethargy, but disoriented x3. History limited due to dementia. No other episodes in the ER. Head CT with no evidenced of intracranial hemorrhage. Chest x ray negative for an infectious process. UA negative for UTI. Glucose at 151. Will admitted patient for further work up on seizure protocol. Admission Exam Per Admitting Provider Constitutional: WD/WN, vitals as above Alert in no acute distress Head: 3 cm laceration with underlaying hematoma to the posterior crown of the head Eyes: PERRL, conjunctivae normal, anicteric sclerae ENMT: external ear and nose normal, oropharynx normal Neck: trachea midline, no thyromegaly C Respiratory: normal respiratory effort, lungs clear to auscultation Cardiovascular: RRR, no murmur, no edema Gastrointestinal (Abdomen): normal bowel sounds, soft, nontender, no hepatosplenomegaly Musculoskeletal: Patient with a skin tear to the left elbow Neurologic: CN's II-XI intact bilaterally, deep tendon reflexes 2+ bilaterally and moves all extremities Psychiatric: Orientation: alert; + not oriented x 3 Principal Diagnosis Seizures Discharge Exam ENMT: external ear and nose normal, oropharynx normal Neck: trachea midline, no thyromegaly Respiratory: normal respiratory effort Auscultation: lungs clear to auscultation bilaterally Cardiovascular: Rate/Rhythm: regular rate and regular rhythm Extremities: no edema Gastrointestinal (Abdomen): Inspection/Auscultation: abdomen normal to inspection Percussion/Palpation: abdomen soft; abdomen nontender Skin: abrasion noted on scalp, minimal drainage Constitutional + thin and comfortable Discharge Data Allergies Allergy/AdvReac Type Severity Reaction Status Date / Time cephalexin [From Keflex] Allergy Unknown Verified 11/26/22 22:35 Consultations 12/30/22 18:18 ED Decision to Admit Stat 12/31/22 09:00 Consult Neurology Routine Ordered Studies 12/30/22 14:58 CT cervical spine wo con Stat CT head/brain wo con Stat 12/31/22 00:00 MR brain seizure wo con Routine Hospital Course (1) Seizure-like activity: 72-year-old male with PMHx End stage alzheimer's dementia with behavioral disturbance and Anxiety admitted due to a seizure-like activity Depakote increased to 500mg PO TID Please recheck valproic acid levels tomorrow 01/03/23 Please have patient f/u with neurology for outpatient EEG Patient may resume quetiapine Seizure- like activity -Episode of a tonic-clonic seizure like activity for 2 to 3 minutes. Lethargy at ER. No episodes on ER -contusion to back of head -CT-H/CTA-N negative. -Admitted on Seizure precautions -MRI brain:No acute intracranial abnormality identified. Involutional changes with unchanged ventriculomegaly which may be on an ex vacuo basis. Normal pressure hydrocephalus could appear similarly. Mild to moderate mucosal thickening of the paranasal sinuses. 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 Discussed with less benefit for extensive seizure workup while in hospital. Has not thought in depth of code status, no living will, last discussion with prior to cognitive decline had wanted all measures. Leanne: [phone] Daughter Daisy: [phone] (2) Multiple abrasions: (3) Alzheimer disease: (4) Anxiety: Total Time Total Time Spent Total Time Spent (In Minutes): see attending attestation Discharge Plan Discharge Items Patient Disposition: Transfer [facility] Reason For Visit: SEIZURE Discharge Diagnosis: Seizure Activity: Per Instructions section Non-emergency contact: Primary Care Provider Call non-emergency contact if: you have any medication questions, your symptoms worsen and you have a fever Follow-up/Referrals: Aries Pedraza MD [Physician] - [facility] - Diet: Regular Addtl Attending Provider Instructions: 72-year-old male with PMHx End stage alzheimer's dementia with behavioral disturbance and Anxiety admitted due to a seizure-like activity Depakote increased to 500mg PO TID Please recheck valproic acid levels tomorrow 01/03/23 Please have patient f/u with neurology for outpatient EEG Patient may resume quetiapine Seizure- like activity -Episode of a tonic-clonic seizure like activity for 2 to 3 minutes. Lethargy at ER. No episodes on ER -contusion to back of head -CT-H/CTA-N negative. -Admitted on Seizure precautions -MRI brain:No acute intracranial abnormality identified. Involutional changes with unchanged ventriculomegaly which may be on an ex vacuo basis. Normal pressure hydrocephalus could appear similarly. Mild to moderate mucosal thickening of the paranasal sinuses. -quetiapine held -Neurology consulted, recommend increase Depakote to 500mg PO TID Alzheimer's dementia with behavioral disturbances -lives at [facility], likely skilled nursing memory care -Will hold Quetiapine for now, if develops agitation overnight may resume quetiapine 100mg PO HS -Will continue Trazodone and Ativan Multiple Falls -3 cm laceration inleft posterior crown of head repaired -Skin tear on left elbow -CT head negative for acute hemorrhage -Fall precautions Code Status -given patient's cognitive decline, he should have a goals of care discussion -contacted , she has understanding of patient's significant cognitive decline and heroic measures may not be conductive to quality of life. Discussed with less benefit for extensive seizure workup while in hospital. Has not thought in depth of code status, no living will, last discussion with prior to cognitive decline had wanted all measures. Leanne: [phone] Daughter Daisy: [phone] Pending Studies at Discharge: No Stand-Alone Forms: My [facility] Skilled Items Patient informed of condition?: Yes DNR: No Discharge Level of Care: Skilled Communicable Disease: No Discharge Prognosis: Stable Lines: None Urinary Catheter: No Medications and DC Order Prescriptions: Continued lorazepam 0.5 mg Tablet 0.25 mg PO QAM Rx Instructions: 1/2 tablet dose trazodone 50 mg Tablet 50 mg PO HS fluticasone propionate 50 mcg/actuation [place],Suspension 2 spray INTRANASAL DAILY Rx Instructions: administer into each nostril cholecalciferol (vitamin D3) [Vitamin D3] 25 mcg (1,000 unit) Tablet 25 mcg PO DAILY acetaminophen 325 mg Tablet 650 mg PO Q6 MDD 3g PRN (Reason: temp>101) acetaminophen 325 mg Tablet 650 mg PO Q6 MDD 3g PRN (Reason: Pain) lorazepam 0.5 mg tablet 0.5 mg PO HS quetiapine 50 mg Tablet 100 mg PO HS salicylic acid-sulfur 2-2 % Shampoo 1 applic TOPICAL .EVERY DAY SHIFT Rx Instructions: massage into wet scalp; leave on for 5 mins ; rinse; repeat application apply to top of head Changed divalproex [Depakote Sprinkles] 125 mg Capsule, Delayed Rel Sprinkle 500 mg PO TID 30 Days Qty: 360 0RF Discharge Orders: Discharge Order (Routine); Ordered 01/02/23 Ordered By: Guerita Mina Admission Data Admit Date/Time: 01/01/23 14:45 Attending Provider: Shanti Payne Admit Provider: Blanco Tavares Primary Care Provider: Harish Anderson Other Providers: Blanco Tavares ; Aries Pedraza Other Interventions: Discharge Summary Assessment (RN) Last Done: 01/02/23 13:28 Supervising Physician Co-Signing Physician Notes I personally examined the patient and verified rutherford points of history and exam, discussed case, and agree with decision making and plan documented by Dr. Mina. Patient with uneventful hospitalization, he was more alert on exam today, is tolerating increase of Depakote, will need valproic acid trough in next week. Family declined additional work-up for seizure-like activity, no neurology did recommend consideration of EEG. Family aware of importance of discussing goals of care, patient remains full code, hopefully he and his family can address this with his PCP, attempts were made to discuss with with his however she was not ready to engage in this conversation at this time. Resident Activity Tracking Resident Involvement: Resident Care Provided Care Provided: Adult Hospital Medicine
== END 2023-01-02 16:37 | DRG 101 ==
LOC: ED 14:46 → EDINP 14:46 → SUATTDRO 19:02 → 1E 21:56 → 2S 12-31 21:37